=== PATIENT | female | born 1995 | race Caucasian/White ===

== ENCOUNTER 2016-10-06 03:44 | Inpatient (IN) | payer MEDICAID ==
[2016-10-06] VITALS (10 sets, daily range): BP systolic 99–131; RESP 16–20; TEMP 97.9–99.6; Ht 165.1 cm; Wt 84.8 kg
[~2016-10-06] VITALS: Ht 165.1 cm; Wt 84.8 kg
[2016-10-06] MEDS ORDERED: FAMOTIDINE 20 MG INJ IV PRN (04:30)
[2016-10-06] MEDS ORDERED: TERBUTALINE 1 MG/ML VIAL SUBQ PRN (04:30)
[2016-10-06] MEDS ORDERED: CEFAZOLIN (LD/OB) 100 ML IV PRN (04:30)
[2016-10-06] MEDS ORDERED: PROMETHAZINE 25 MG/ML VIAL IV PRN (04:30)
[2016-10-06] MEDS ORDERED: METOCLOPRAMIDE 10 MG/2 ML VIAL IV PUSH PRN (04:30)
[2016-10-06] MEDS ORDERED: ONDANSETRON 4 MG VIAL IV PRN (04:30)
[2016-10-06] MEDS ORDERED: ACETAMINOPHEN 325 MG TAB PO PRN (04:30)
[2016-10-06] MEDS ORDERED: LIDOCAINE 1% BUFFERED 1 ML SYR INTRADERM PRN (04:30)
[2016-10-06] MEDS ORDERED: LACT RINGERS 1,000 ML IV SCH (04:30)
[2016-10-06] MEDS ORDERED: FAMOTIDINE 20 MG TAB PO PRN (04:30)
[2016-10-06] MEDS ORDERED: LIDOCAINE 1% 30 ML PF INFILTRATE ONE (04:30)
[2016-10-06] MEDS ORDERED: FENTANYL 100 MCG/2 ML AMP ONE (05:03)
[2016-10-06] MEDS ORDERED: ROPIV/FENT 0.2%-2MCG/ML 100 ML EPIDURAL ONE (05:03)
[2016-10-06] MEDS ORDERED: SODIUM CHLORIDE 0.9% 500 ML IV PRN (05:30)
[2016-10-06] MEDS ORDERED: FENTANYL 100 MCG/2 ML AMP EPIDURAL ONE (05:30)
[2016-10-06] MEDS ORDERED: ROPIV/FENT 0.2%-2MCG/ML 100 ML EPIDURAL SCH (05:30)
[2016-10-06] MEDS ORDERED: LACT RINGERS 500 ML IV PRN (05:30)
[2016-10-06] MEDS ORDERED: LACT RINGERS 500 ML IV ONE (05:30)
[2016-10-06] MEDS ORDERED: LIDOCAINE 2% 5 ML IV ONE (07:55)
[2016-10-06] MEDS: **ONLY ANESTEHSIA MAY ORDER OPIATES WHILE ON EPIDURAL XX SCH ×2 (08:00→20:00)
[2016-10-06] MEDS: OXYTOCIN 15 UNITS/250 ML NS 250 ML IV SCH ×2 (10:02→10:20)
[2016-10-06] MEDS ORDERED: MISOPROSTOL 25 MCG/0.25 **QUARTER TAB VAG ONE (10:10)
[2016-10-06] MEDS ORDERED: MISOPROSTOL 25 MCG/0.25 **QUARTER TAB PO ONE (10:25)
[2016-10-06] MEDS ORDERED: TDaP 0.5 ML VIAL IM.VACC ONE (10:25)
[2016-10-06] MEDS ORDERED: SALINE FLUSH 10 ML FLUSH PRN (10:25)
[2016-10-06] MEDS ORDERED: ASTRINGENT MED PADS 40'S TOPICAL PRN (10:25)
[2016-10-06] MEDS ORDERED: MAG HYDROX 30 ML UDC PO PRN (10:25)
[2016-10-06] MEDS ORDERED: DERMOPLAST SPRAY TOPICAL PRN (10:25)
[2016-10-06] MEDS ORDERED: OXYTOCIN 15 UNITS/250 ML NS 250 ML IV SCH (10:25)
[2016-10-06] MEDS ORDERED: MISOPROSTOL 100 MCG TAB ONE (10:25)
[2016-10-06] MEDS: Ibuprofen 600 MG TAB PO SCH ×3 (11:47→23:45)
[2016-10-07 01:06] VITALS: BP_SYST 123; RESP 20; TEMP 97.3
[2016-10-07 05:05] VITALS: BP_SYST 112; RESP 20; TEMP 97.8
[2016-10-07] MEDS: Ibuprofen 600 MG TAB PO SCH ×4 (06:10→23:39)
[2016-10-07] MEDS: **ONLY ANESTEHSIA MAY ORDER OPIATES WHILE ON EPIDURAL XX SCH (07:54)
[2016-10-07] MEDS: DOCUSATE SOD 100 MG CAP PO SCH (08:14)
[2016-10-07 09:55] VITALS: BP_SYST 124; RESP 16; TEMP 98
[2016-10-07 17:15] VITALS: BP_SYST 134; RESP 16; TEMP 98.2
[2016-10-08 05:22] VITALS: BP_SYST 126; RESP 20; TEMP 98.2
[2016-10-08] MEDS: Ibuprofen 600 MG TAB PO SCH (06:03)
[2016-10-08 09:37] VITALS: BP_SYST 126; RESP 18; TEMP 97.8
[2016-10-08] MEDS: DOCUSATE SOD 100 MG CAP PO SCH (09:40)
[2016-10-08 10:14] VITALS: BP_SYST 126; RESP 18; TEMP 97.8
== END 2016-10-08 12:12 | disposition home or self-care (01) | DRG 775 ==
LOC: LDOP 03:44 → LD 04:29 → OB 14:03
PROVIDERS: ADMIT Obstetrics & Gynecology Reproductive Endocrinology; ATTEND Obstetrics & Gynecology Reproductive Endocrinology
PROC: 10E0XZZ Delivery of Products of Conception, External Approach (ICD-10-PCS; principal; 2016-10-06)
CPT/HCPCS: 81002